=== PATIENT | female | born 1935 | race Caucasian/White ===

== ENCOUNTER 2019-03-19 01:31 | Inpatient (IN) ==
[2019-03-19] MEDS ORDERED: ONDANSETRON 4 MG/2 ML VIAL IVP ONE (01:39)
[2019-03-19] MEDS ORDERED: MORPHINE SULFATE 4 MG/1 ML IVP ONE (01:39)
[2019-03-19] MEDS ORDERED: Sodium Chloride 0.9% 1,000 ML PRIMARY IV ONE (01:39)
[2019-03-19 01:55] LABS: BASOPHILS # (AUTO) 0.07 10*3/UL; BASOPHILS % (AUTO) 0.8 % (0-1); EOSINOPHILS # (AUTO) 0.25 10*3/UL; EOSINOPHILS % (AUTO) 2.9 % (0-8); Hemoglobin [HGB] 13.6 g/dL (12.0-16.0); LYMPHOCYTES # (AUTO) 2.71 10*3/uL; MEAN CORPUSCULAR HGB CONC 31.6 g/dL (33-37); MEAN CORPUSCULAR VOLUME 95.8 FL (81-99); MEAN PLATELET VOLUME 11.6 FL (7.4-12.2); MONOCYTES # (AUTO) 0.63 10*3/UL (0.3-0.8); MONOCYTES % (AUTO) 7.4 % (5-15); NEUTROPHILS # (AUTO) 4.86 10*3/UL; NEUTROPHILS % (AUTO) 56.8 % (50-80); RED BLOOD COUNT 4.49 10^6/uL (4.20-5.40)
[2019-03-19 01:57] LABS: PLATELET MORPHOLOGY COMMENT NORMAL MORPHOLOGY (NORM); RBC MORPHOLOGY COMMENT NORMAL MORPHOLOGY (NORM); WBC MORPHOLOGY COMMENT NORMAL MORPHOLOGY (NORM)
[2019-03-19 02:03] LABS: BUN/CREATININE RATIO 33.33 (6-20); SERUM ALBUMIN 4.3 g/dL (3.5-4.8)
[2019-03-19] MEDS ORDERED: LORazepam 2 MG/1 ML VIAL IVP ONE ×2 (02:18→07:55)
[2019-03-19] MEDS ORDERED: LIDOCAINE HCL 2 % 10 ML JELLY URO-JECT TOPICAL PRN ×2 (02:40→03:06)
[2019-03-19] MEDS ORDERED: LIDOCAINE W/ SODIUM BICARB 0.5 ML SYR SUBD PRN ×2 (03:06→12:35)
[2019-03-19] MEDS ORDERED: DOCUSATE 100 MG CAPSULE PO PRN (03:06)
[2019-03-19] MEDS ORDERED: ONDANSETRON 4 MG/2 ML VIAL IVP PRN (03:06)
[2019-03-19] MEDS ORDERED: CALCIUM CARBONATE 500 MG (TUMS) CHEWABLE TABLET PO PRN (03:06)
[2019-03-19] MEDS ORDERED: ACETAMINOPHEN 325 MG TABLET PO PRN (03:06)
[2019-03-19] MEDS ORDERED: HYDROcodone-APAP 5 MG -325 MG TABLET PO PRN (03:06)
[2019-03-19] MEDS: Lactated Ringers 1,000 ML PRIMARY IV SCH ×3 (03:18→19:56)
[2019-03-19] MEDS: MORPHINE SULFATE 2 MG/1 ML IVP PRN ×2 (03:18→07:28)
[2019-03-19] MEDS: ClonazePAM Tab 1 MG TABLET PO PRN (04:24)
[2019-03-19 07:51] LABS: BILIRUBIN,URINE NEGATIVE (NEG); CLARITY,URINE Slightly Cloudy (CLEAR); COLOR,URINE YELLOW (Y); GLUCOSE, URINE (UA) NEGATIVE (NEG); OCCULT BLOOD,URINE MODERATE (NEG); PROTEIN,URINE TRACE mg/dl (NEG); UROBILINOGEN,URINE 0.2 EU/dL (0.2)
[2019-03-19] MEDS ORDERED: TRANEXAMIC ACID 1,000 MG / 10 ML VIAL ONE ×2 (07:55→10:38)
[2019-03-19] MEDS ORDERED: Sodium Chloride 0.9% 500 ML ONE (08:00)
[2019-03-19 08:02] LABS: BACTERIA,URINE MODERATE; SQUAMOUS EPITHELIAL CELL,UR RARE; URINE SAMPLE TYPE CATH SPECIMEN; WBC,URINE 80-100
[2019-03-19] MEDS ORDERED: Magnesium Sulfate 2gm (Premix) 2 GM/50 ML BAG IV ONE (08:30)
[2019-03-19] MEDS: cefTRIAXone Inj 2 GM in Sodium Chloride 0.9% 100 ML IV SCH ×2 (08:54→09:45)
[2019-03-19] MEDS ORDERED: metFORMIN 500 MG TABLET PO SCH (09:00)
[2019-03-19] MEDS ORDERED: HYDROCHLOROTHIAZIDE 25 MG TABLET PO SCH (09:00)
[2019-03-19] MEDS ORDERED: LOSARTAN 50 MG TABLET PO SCH (09:00)
[2019-03-19] MEDS ORDERED: fentaNYL Inj 250 MCG/5 ML VIAL ONE (09:44)
[2019-03-19] MEDS ORDERED: LIDOCAINE MPF 2% - 5 ML (20 MG/1 ML) ONE (09:44)
[2019-03-19] MEDS ORDERED: PROPOFOL 10 MG/1 ML (200 MG/20 ML) VIAL IV ONE (09:45)
[2019-03-19] MEDS ORDERED: ceFAZolin Inj 2gm (Premix) 2 GM/50 ML BAG IV ONE ×2 (10:10→10:56)
[2019-03-19] MEDS ORDERED: Lactated Ringers 1,000 ML PRIMARY IV ONE (10:42)
[2019-03-19] MEDS ORDERED: SUGAMMADEX SODIUM 200 MG/2 ML VIAL IV ONE (11:53)
[2019-03-19] MEDS ORDERED: NEOMYCIN/BACITRACIN/POLYMYXIN 0.9 GM OINT PACKET TOPICAL ONE (12:13)
[2019-03-19] MEDS ORDERED: HYDRALAZINE 20 MG/1 ML ONE (12:27)
[2019-03-19] MEDS ORDERED: HYDRALAZINE 20 MG/1 ML IVP ONE (12:32)
[2019-03-19] MEDS ORDERED: HYDROmorphone 2 MG/1 ML IVP PRN (12:35)
[2019-03-19] MEDS ORDERED: fentaNYL Inj 100 MCG/2 ML VIAL IVP PRN (12:35)
[2019-03-19] MEDS ORDERED: HYDRALAZINE 20 MG/1 ML IVP PRN (13:55)
[2019-03-19] MEDS: CITALOPRAM 20 MG TABLET PO SCH (14:59)
[2019-03-19] MEDS: AmLODIPine Tab 2.5 MG TABLET PO SCH (15:00)
[2019-03-19] MEDS: HYDROcodone-APAP 5 MG -325 MG TABLET PO PRN (21:09)
[2019-03-19] MEDS: Mirtazapine Tab 15 MG TAB PO SCH (21:11)
[2019-03-20] MEDS: ClonazePAM Tab 1 MG TABLET PO PRN ×2 (01:57→18:45)
[2019-03-20] MEDS: HYDROcodone-APAP 5 MG -325 MG TABLET PO PRN ×3 (03:33→19:00)
[2019-03-20 05:00] LABS: Hematocrit [HCT] 36.5 % (37.0-47.0); Hemoglobin [HGB] 11.3 g/dL (12.0-16.0); MEAN CORPUSCULAR VOLUME 96.6 FL (81-99); MEAN PLATELET VOLUME 10.8 FL (7.4-12.2); RED BLOOD COUNT 3.78 10^6/uL (4.20-5.40)
[2019-03-20] MEDS: Lactated Ringers 1,000 ML PRIMARY IV SCH ×2 (05:13→12:57)
[2019-03-20] MEDS: CITALOPRAM 20 MG TABLET PO SCH (08:42)
[2019-03-20] MEDS: AmLODIPine Tab 2.5 MG TABLET PO SCH (09:02)
[2019-03-20] MEDS: cefTRIAXone Inj 2 GM in Sodium Chloride 0.9% 100 ML IV SCH (09:02)
[2019-03-20] MEDS ORDERED: CHOLECALCIFEROL 1000 IU TABLET PO ONE (09:32)
[2019-03-20] MEDS ORDERED: HALOPERIDOL LACTATE 5 MG/1 ML AMPULE IM ONE (10:59)
[2019-03-20] MEDS ORDERED: HALOPERIDOL LACTATE 5 MG/1 ML AMPULE IM PRN (10:59)
[2019-03-20] MEDS ORDERED: FUROSEMIDE 10 MG/1 ML - 4 ML IVP ONE (12:15)
[2019-03-20] MEDS ORDERED: ENOXAPARIN SODIUM 40 MG/0.4 ML SYRINGE SUBCUT ONE (12:15)
[2019-03-20] MEDS: Acetaminophen 1000mg Inj 1,000 MG/100 ML VIAL IV SCH ×2 (12:53→21:26)
[2019-03-20] MEDS: Mirtazapine Tab 15 MG TAB PO SCH (21:26)
[2019-03-21] MEDS: HYDROcodone-APAP 5 MG -325 MG TABLET PO PRN ×2 (01:13→19:31)
[2019-03-21] MEDS: Acetaminophen 1000mg Inj 1,000 MG/100 ML VIAL IV SCH ×2 (04:21→11:16)
[2019-03-21 04:50] LABS: BASOPHILS # (AUTO) 0.02 10*3/UL; BASOPHILS % (AUTO) 0.2 % (0-1); EOSINOPHILS # (AUTO) 0.03 10*3/UL; EOSINOPHILS % (AUTO) 0.3 % (0-8); Hematocrit [HCT] 37.9 % (37.0-47.0); Hemoglobin [HGB] 11.6 g/dL (12.0-16.0); LYMPHOCYTES # (AUTO) 1.21 10*3/uL; MEAN CORPUSCULAR HGB CONC 30.6 g/dL (33-37); MEAN CORPUSCULAR VOLUME 97.4 FL (81-99); MONOCYTES # (AUTO) 1.04 10*3/UL (0.3-0.8); MONOCYTES % (AUTO) 8.8 % (5-15); NEUTROPHILS % (AUTO) 80.2 % (50-80); RED BLOOD COUNT 3.89 10^6/uL (4.20-5.40)
[2019-03-21 04:52] LABS: PLATELET MORPHOLOGY COMMENT NORMAL MORPHOLOGY (NORM); RBC MORPHOLOGY COMMENT NORMAL MORPHOLOGY (NORM); WBC MORPHOLOGY COMMENT NORMAL MORPHOLOGY (NORM)
[2019-03-21 04:56] LABS: BUN/CREATININE RATIO 27.5 (6-20)
[2019-03-21] MEDS: cefTRIAXone Inj 2 GM in Sodium Chloride 0.9% 100 ML IV SCH (08:13)
[2019-03-21] MEDS: ASPIRIN 81 MG (BABY) CHEWABLE TABLET PO SCH (08:49)
[2019-03-21] MEDS: AmLODIPine Tab 2.5 MG TABLET PO SCH (08:50)
[2019-03-21] MEDS: CHOLECALCIFEROL 1000 IU TABLET PO SCH (08:50)
[2019-03-21] MEDS: CITALOPRAM 20 MG TABLET PO SCH (08:50)
[2019-03-21] MEDS ORDERED: ENOXAPARIN SODIUM 40 MG/0.4 ML SYRINGE SUBCUT SCH (09:00)
[2019-03-21] MEDS ORDERED: ENOXAPARIN SODIUM 30 MG/0.3 ML SYRINGE SUBCUT ONE (12:00)
[2019-03-21] MEDS ORDERED: METOPROLOL SUCCINATE 25 MG SR 24H TABLET PO ONE (19:47)
[2019-03-21] MEDS ORDERED: Acetaminophen 1000mg Inj 1,000 MG/100 ML VIAL IV PRN (19:47)
[2019-03-21] MEDS: CEPHALEXIN 500 MG CAPSULE PO SCH (21:14)
[2019-03-21] MEDS: Mirtazapine Tab 15 MG TAB PO SCH (21:14)
[2019-03-22] MEDS: HYDROcodone-APAP 5 MG -325 MG TABLET PO PRN ×2 (03:17→19:51)
[2019-03-22 06:18] LABS: BASOPHILS # (AUTO) 0.03 10*3/UL; BASOPHILS % (AUTO) 0.3 % (0-1); EOSINOPHILS # (AUTO) 0.18 10*3/UL; EOSINOPHILS % (AUTO) 1.9 % (0-8); Hematocrit [HCT] 36.4 % (37.0-47.0); MEAN CORPUSCULAR HGB CONC 30.2 g/dL (33-37); MEAN CORPUSCULAR VOLUME 97.3 FL (81-99); MEAN PLATELET VOLUME 11.2 FL (7.4-12.2); MONOCYTES # (AUTO) 0.77 10*3/UL (0.3-0.8); NEUTROPHILS # (AUTO) 7.38 10*3/UL; NEUTROPHILS % (AUTO) 77.1 % (50-80); RED BLOOD COUNT 3.74 10^6/uL (4.20-5.40)
[2019-03-22 06:19] LABS: BUN/CREATININE RATIO 35.71 (6-20)
[2019-03-22 06:23] LABS: PLATELET MORPHOLOGY COMMENT NORMAL MORPHOLOGY (NORM); RBC MORPHOLOGY COMMENT NORMAL MORPHOLOGY (NORM); WBC MORPHOLOGY COMMENT NORMAL MORPHOLOGY (NORM)
[2019-03-22] MEDS: POTASSIUM CHLORIDE 20 MEQ TAB PO SCH (09:21)
[2019-03-22] MEDS: CEPHALEXIN 500 MG CAPSULE PO SCH ×2 (09:21→19:54)
[2019-03-22] MEDS: ASPIRIN 81 MG (BABY) CHEWABLE TABLET PO SCH (09:21)
[2019-03-22] MEDS: METOPROLOL SUCCINATE 25 MG SR 24H TABLET PO SCH (09:21)
[2019-03-22] MEDS: CHOLECALCIFEROL 1000 IU TABLET PO SCH (09:21)
[2019-03-22] MEDS: CITALOPRAM 20 MG TABLET PO SCH (09:21)
[2019-03-22] MEDS: ENOXAPARIN SODIUM 60 MG/0.6 ML SYRINGE SUBCUT SCH (13:40)
[2019-03-22] MEDS: Mirtazapine Tab 15 MG TAB PO SCH (19:54)
[2019-03-23] MEDS: CEPHALEXIN 500 MG CAPSULE PO SCH ×3 (05:08→20:50)
[2019-03-23] MEDS: Mirtazapine Tab 15 MG TAB PO SCH ×2 (05:10→20:50)
[2019-03-23] MEDS: CHOLECALCIFEROL 1000 IU TABLET PO SCH (09:25)
[2019-03-23] MEDS: METOPROLOL SUCCINATE 25 MG SR 24H TABLET PO SCH (09:26)
[2019-03-23] MEDS: CITALOPRAM 20 MG TABLET PO SCH (09:26)
[2019-03-23] MEDS: POTASSIUM CHLORIDE 20 MEQ TAB PO SCH (09:26)
[2019-03-23] MEDS: ASPIRIN 81 MG (BABY) CHEWABLE TABLET PO SCH (09:26)
[2019-03-23] MEDS: ENOXAPARIN SODIUM 60 MG/0.6 ML SYRINGE SUBCUT SCH (12:52)
[2019-03-23] MEDS ORDERED: LIDOCAINE HCL 2 % 10 ML JELLY URO-JECT TOPICAL PRN (18:28)
[2019-03-23] MEDS ORDERED: LABETALOL 20 MG/4 ML (5 MG/1 ML) SYRINGE IVP PRN (19:13)
[2019-03-23] MEDS: HYDROcodone-APAP 5 MG -325 MG TABLET PO PRN (20:51)
[2019-03-24] MEDS: Lactated Ringers 1,000 ML PRIMARY IV SCH ×3 (00:42→13:06)
[2019-03-24 05:22] LABS: BASOPHILS # (AUTO) 0.04 10*3/UL; BASOPHILS % (AUTO) 0.5 % (0-1); EOSINOPHILS # (AUTO) 0.26 10*3/UL; EOSINOPHILS % (AUTO) 3.3 % (0-8); Hematocrit [HCT] 36.6 % (37.0-47.0); Hemoglobin [HGB] 11.7 g/dL (12.0-16.0); LYMPHOCYTES # (AUTO) 1.55 10*3/uL; MEAN CORPUSCULAR VOLUME 95.8 FL (81-99); MEAN PLATELET VOLUME 10.8 FL (7.4-12.2); NEUTROPHILS % (AUTO) 66.9 % (50-80); RED BLOOD COUNT 3.82 10^6/uL (4.20-5.40)
[2019-03-24 05:25] LABS: PLATELET MORPHOLOGY COMMENT NORMAL MORPHOLOGY (NORM); RBC MORPHOLOGY COMMENT NORMAL MORPHOLOGY (NORM); WBC MORPHOLOGY COMMENT NORMAL MORPHOLOGY (NORM)
[2019-03-24] MEDS ORDERED: cefTRIAXone Inj 2 GM in Sodium Chloride 0.9% 100 ML IV SCH (07:00)
[2019-03-24] MEDS: METOPROLOL SUCCINATE 25 MG SR 24H TABLET PO SCH (08:08)
[2019-03-24] MEDS ORDERED: fentaNYL Inj 100 MCG/2 ML VIAL ONE (08:22)
[2019-03-24] MEDS ORDERED: MIDAZOLAM HCL 2 MG/2 ML VIAL ONE (08:22)
[2019-03-24] MEDS ORDERED: PHENYLEPHRINE 10,000 MCG/1 ML VIAL ONE (08:23)
[2019-03-24] MEDS ORDERED: Sodium Chloride 0.9% 0 ML ONE (08:24)
[2019-03-24] MEDS ORDERED: Sodium Chloride 0.9% 250 ML ONE (09:08)
[2019-03-24] MEDS ORDERED: LIDOCAINE W/ SODIUM BICARB 0.5 ML SYR ONE (09:14)
[2019-03-24] MEDS ORDERED: GLYCOPYRROLATE 0.2 MG/1 ML VIAL ONE (09:46)
[2019-03-24] MEDS ORDERED: ceFAZolin Inj 2gm (Premix) 2 GM/50 ML BAG IV ONE ×2 (09:48→10:39)
[2019-03-24] MEDS ORDERED: BUPivacaine Inj 0.5% PF (5mg/ml) 10ml vial ONE (10:16)
[2019-03-24] MEDS ORDERED: BUPivacaine Liposome/PF (Exparel) Inj 20ml vial INFIL ONE (10:16)
[2019-03-24] MEDS ORDERED: PROPOFOL 10 MG/1 ML (200 MG/20 ML) VIAL IV ONE (10:49)
[2019-03-24] MEDS ORDERED: ONDANSETRON 4 MG/2 ML VIAL IVP PRN (12:19)
[2019-03-24] MEDS: CITALOPRAM 20 MG TABLET PO SCH (13:05)
[2019-03-24] MEDS: ASPIRIN 81 MG (BABY) CHEWABLE TABLET PO SCH (13:05)
[2019-03-24] MEDS: CHOLECALCIFEROL 1000 IU TABLET PO SCH (13:06)
[2019-03-24] MEDS: POTASSIUM CHLORIDE 20 MEQ TAB PO SCH (13:06)
[2019-03-24] MEDS: HYDROcodone-APAP 5 MG -325 MG TABLET PO PRN ×2 (15:06→20:57)
[2019-03-24] MEDS: ceFAZolin Inj 2gm (Premix) 2 GM/50 ML BAG IV SCH (18:43)
[2019-03-24] MEDS: DOCUSATE 100 MG CAPSULE PO SCH (20:45)
[2019-03-24] MEDS: Mirtazapine Tab 15 MG TAB PO SCH (20:47)
[2019-03-25] MEDS: LABETALOL 20 MG/4 ML (5 MG/1 ML) SYRINGE IVP PRN (01:31)
[2019-03-25] MEDS ORDERED: Sodium Chloride 0.9% 1,000 ML PRIMARY IV ONE (01:47)
[2019-03-25] MEDS ORDERED: Sodium Chloride 0.9% 750 ML IV ONE (01:54)
[2019-03-25] MEDS: ceFAZolin Inj 2gm (Premix) 2 GM/50 ML BAG IV SCH (02:01)
[2019-03-25 04:46] LABS: BASOPHILS # (AUTO) 0.03 10*3/UL; BASOPHILS % (AUTO) 0.3 % (0-1); EOSINOPHILS % (AUTO) 4.4 % (0-8); Hematocrit [HCT] 35.9 % (37.0-47.0); Hemoglobin [HGB] 11.2 g/dL (12.0-16.0); LYMPHOCYTES # (AUTO) 1.31 10*3/uL; MEAN CORPUSCULAR HGB CONC 31.2 g/dL (33-37); MEAN CORPUSCULAR VOLUME 96.5 FL (81-99); MEAN PLATELET VOLUME 10.5 FL (7.4-12.2); MONOCYTES # (AUTO) 0.95 10*3/UL (0.3-0.8); MONOCYTES % (AUTO) 10.5 % (5-15); RED BLOOD COUNT 3.72 10^6/uL (4.20-5.40)
[2019-03-25 04:48] LABS: PLATELET MORPHOLOGY COMMENT NORMAL MORPHOLOGY (NORM); RBC MORPHOLOGY COMMENT NORMAL MORPHOLOGY (NORM); WBC MORPHOLOGY COMMENT NORMAL MORPHOLOGY (NORM)
[2019-03-25] MEDS ORDERED: cefTRIAXone Inj 2 GM in Sodium Chloride 0.9% 100 ML IV SCH (07:00)
[2019-03-25] MEDS ORDERED: ASPIRIN 325 MG TABLET PO SCH ×2 (09:00)
[2019-03-25] MEDS: CITALOPRAM 20 MG TABLET PO SCH (09:04)
[2019-03-25] MEDS: METOPROLOL SUCCINATE 25 MG SR 24H TABLET PO SCH (09:04)
[2019-03-25] MEDS: CEPHALEXIN 500 MG CAPSULE PO SCH ×2 (09:04→20:25)
[2019-03-25] MEDS: POTASSIUM CHLORIDE 20 MEQ TAB PO SCH (09:05)
[2019-03-25] MEDS: DOCUSATE 100 MG CAPSULE PO SCH ×2 (09:05→20:25)
[2019-03-25] MEDS: HYDROcodone-APAP 5 MG -325 MG TABLET PO PRN ×3 (09:06→20:23)
[2019-03-25] MEDS ORDERED: ASPIRIN 81 MG (BABY) CHEWABLE TABLET PO SCH (09:15)
[2019-03-25] MEDS: ENOXAPARIN SODIUM 40 MG/0.4 ML SYRINGE SUBCUT SCH (16:49)
[2019-03-25] MEDS: Mirtazapine Tab 15 MG TAB PO SCH (20:24)
[2019-03-26 05:33] LABS: BASOPHILS # (AUTO) 0.05 10*3/UL; BASOPHILS % (AUTO) 0.4 % (0-1); EOSINOPHILS # (AUTO) 0.31 10*3/UL; EOSINOPHILS % (AUTO) 2.8 % (0-8); Hematocrit [HCT] 36.5 % (37.0-47.0); Hemoglobin [HGB] 11.2 g/dL (12.0-16.0); LYMPHOCYTES # (AUTO) 2.03 10*3/uL; MEAN CORPUSCULAR HGB CONC 30.7 g/dL (33-37); MEAN CORPUSCULAR VOLUME 96.1 FL (81-99); MEAN PLATELET VOLUME 10.4 FL (7.4-12.2); MONOCYTES # (AUTO) 1.11 10*3/UL (0.3-0.8); MONOCYTES % (AUTO) 9.8 % (5-15); NEUTROPHILS # (AUTO) 7.68 10*3/UL; NEUTROPHILS % (AUTO) 68.2 % (50-80)
[2019-03-26 05:36] LABS: PLATELET MORPHOLOGY COMMENT NORMAL MORPHOLOGY (NORM); RBC MORPHOLOGY COMMENT NORMAL MORPHOLOGY (NORM); WBC MORPHOLOGY COMMENT NORMAL MORPHOLOGY (NORM)
[2019-03-26 05:40] LABS: BUN/CREATININE RATIO 28.33 (6-20)
[2019-03-26] MEDS ORDERED: BISACODYL 5 MG TABLET PO PRN (09:00)
[2019-03-26] MEDS: POTASSIUM CHLORIDE 20 MEQ TAB PO SCH (09:25)
[2019-03-26] MEDS: METOPROLOL SUCCINATE 25 MG SR 24H TABLET PO SCH (09:25)
[2019-03-26] MEDS: CITALOPRAM 20 MG TABLET PO SCH (09:25)
[2019-03-26] MEDS: ASPIRIN 81 MG (BABY) CHEWABLE TABLET PO SCH (09:25)
[2019-03-26] MEDS: ENOXAPARIN SODIUM 40 MG/0.4 ML SYRINGE SUBCUT SCH (09:26)
[2019-03-26] MEDS: HYDROcodone-APAP 5 MG -325 MG TABLET PO PRN ×3 (09:26→18:42)
[2019-03-26] MEDS: DOCUSATE 100 MG CAPSULE PO SCH ×2 (09:27→20:10)
[2019-03-26] MEDS: ClonazePAM Tab 1 MG TABLET PO PRN (18:25)
[2019-03-26] MEDS: Mirtazapine Tab 15 MG TAB PO SCH (20:10)
[2019-03-27 05:00] LABS: BASOPHILS # (AUTO) 0.06 10*3/UL; BASOPHILS % (AUTO) 0.5 % (0-1); EOSINOPHILS # (AUTO) 0.33 10*3/UL; EOSINOPHILS % (AUTO) 2.9 % (0-8); Hematocrit [HCT] 35.2 % (37.0-47.0); Hemoglobin [HGB] 10.9 g/dL (12.0-16.0); LYMPHOCYTES # (AUTO) 1.96 10*3/uL; MEAN CORPUSCULAR VOLUME 95.9 FL (81-99); MEAN PLATELET VOLUME 10.2 FL (7.4-12.2); MONOCYTES # (AUTO) 1.12 10*3/UL (0.3-0.8); MONOCYTES % (AUTO) 9.9 % (5-15); NEUTROPHILS # (AUTO) 7.71 10*3/UL; NEUTROPHILS % (AUTO) 68.3 % (50-80); RED BLOOD COUNT 3.67 10^6/uL (4.20-5.40)
[2019-03-27 05:15] LABS: PLATELET MORPHOLOGY COMMENT NORMAL MORPHOLOGY (NORM); RBC MORPHOLOGY COMMENT NORMAL MORPHOLOGY (NORM); WBC MORPHOLOGY COMMENT NORMAL MORPHOLOGY (NORM)
[2019-03-27] MEDS: HYDROcodone-APAP 5 MG -325 MG TABLET PO PRN ×4 (05:27→20:14)
[2019-03-27 05:28] LABS: BUN/CREATININE RATIO 28.33 (6-20)
[2019-03-27] MEDS: ENOXAPARIN SODIUM 40 MG/0.4 ML SYRINGE SUBCUT SCH (09:34)
[2019-03-27] MEDS: CITALOPRAM 20 MG TABLET PO SCH (09:35)
[2019-03-27] MEDS: ASPIRIN 81 MG (BABY) CHEWABLE TABLET PO SCH (09:35)
[2019-03-27] MEDS: DOCUSATE 100 MG CAPSULE PO SCH ×2 (09:35→20:14)
[2019-03-27] MEDS: METOPROLOL SUCCINATE 25 MG SR 24H TABLET PO SCH (09:36)
[2019-03-27] MEDS: ClonazePAM Tab 1 MG TABLET PO PRN (18:17)
[2019-03-27] MEDS: Mirtazapine Tab 15 MG TAB PO SCH (20:14)
[2019-03-28] MEDS: HYDROcodone-APAP 5 MG -325 MG TABLET PO PRN ×5 (01:36→18:36)
[2019-03-28] MEDS: LABETALOL 20 MG/4 ML (5 MG/1 ML) SYRINGE IVP PRN (01:50)
[2019-03-28] MEDS: CITALOPRAM 20 MG TABLET PO SCH (08:43)
[2019-03-28] MEDS: DOCUSATE 100 MG CAPSULE PO SCH ×2 (08:44→20:06)
[2019-03-28] MEDS: ASPIRIN 81 MG (BABY) CHEWABLE TABLET PO SCH (08:45)
[2019-03-28] MEDS: METOPROLOL SUCCINATE 25 MG SR 24H TABLET PO SCH (08:45)
[2019-03-28] MEDS: ENOXAPARIN SODIUM 40 MG/0.4 ML SYRINGE SUBCUT SCH (08:45)
[2019-03-28] MEDS ORDERED: CEPHALEXIN 500 MG CAPSULE PO SCH (12:00)
[2019-03-28] MEDS: ClonazePAM Tab 1 MG TABLET PO PRN (19:40)
[2019-03-28] MEDS: Mirtazapine Tab 15 MG TAB PO SCH (20:06)
[2019-03-29] MEDS: HYDROcodone-APAP 5 MG -325 MG TABLET PO PRN ×5 (03:51→20:31)
[2019-03-29] MEDS: ENOXAPARIN SODIUM 40 MG/0.4 ML SYRINGE SUBCUT SCH (08:17)
[2019-03-29] MEDS: ASPIRIN 81 MG (BABY) CHEWABLE TABLET PO SCH (08:18)
[2019-03-29] MEDS: CITALOPRAM 20 MG TABLET PO SCH (08:18)
[2019-03-29] MEDS: DOCUSATE 100 MG CAPSULE PO SCH ×2 (08:18→20:30)
[2019-03-29] MEDS: METOPROLOL SUCCINATE 25 MG SR 24H TABLET PO SCH (08:19)
[2019-03-29] MEDS: ClonazePAM Tab 1 MG TABLET PO PRN (20:30)
[2019-03-29] MEDS: Mirtazapine Tab 15 MG TAB PO SCH (20:30)
[2019-03-30] MEDS: HYDROcodone-APAP 5 MG -325 MG TABLET PO PRN ×3 (01:41→20:51)
[2019-03-30] MEDS: LOSARTAN 25 MG TABLET PO SCH (09:10)
[2019-03-30] MEDS: CITALOPRAM 20 MG TABLET PO SCH (09:10)
[2019-03-30] MEDS: DOCUSATE 100 MG CAPSULE PO SCH ×3 (09:10→20:50)
[2019-03-30] MEDS: ASPIRIN 81 MG (BABY) CHEWABLE TABLET PO SCH (09:10)
[2019-03-30] MEDS: ENOXAPARIN SODIUM 40 MG/0.4 ML SYRINGE SUBCUT SCH ×2 (09:11→09:46)
[2019-03-30] MEDS: METOPROLOL SUCCINATE 25 MG SR 24H TABLET PO SCH ×2 (09:32→09:46)
[2019-03-30] MEDS: Metoprolol TARTRATE Tab 25 MG TAB PO SCH (11:52)
[2019-03-30] MEDS: metFORMIN 500 MG TABLET PO SCH (16:27)
[2019-03-30] MEDS: ClonazePAM Tab 1 MG TABLET PO PRN (20:50)
[2019-03-30] MEDS: Mirtazapine Tab 15 MG TAB PO SCH (20:51)
[2019-03-31] MEDS: HYDROcodone-APAP 5 MG -325 MG TABLET PO PRN ×3 (04:32→20:03)
[2019-03-31] MEDS: DOCUSATE 100 MG CAPSULE PO SCH ×2 (08:00→20:02)
[2019-03-31] MEDS: ASPIRIN 81 MG (BABY) CHEWABLE TABLET PO SCH (08:25)
[2019-03-31] MEDS: metFORMIN 500 MG TABLET PO SCH ×2 (08:26→17:02)
[2019-03-31] MEDS: CITALOPRAM 20 MG TABLET PO SCH (08:26)
[2019-03-31] MEDS: LOSARTAN 25 MG TABLET PO SCH (08:27)
[2019-03-31] MEDS: ENOXAPARIN SODIUM 40 MG/0.4 ML SYRINGE SUBCUT SCH (08:28)
[2019-03-31 09:12] LABS: RED BLOOD COUNT 3.77 10^6/uL (4.20-5.40)
[2019-03-31 09:13] LABS: BASOPHILS # (AUTO) 0.09 10*3/UL; BASOPHILS % (AUTO) 0.9 % (0-1); EOSINOPHILS % (AUTO) 3.1 % (0-8); Hematocrit [HCT] 35.7 % (37.0-47.0); Hemoglobin [HGB] 11.2 g/dL (12.0-16.0); LYMPHOCYTES # (AUTO) 1.75 10*3/uL; MEAN CORPUSCULAR HGB CONC 31.4 g/dL (33-37); MEAN CORPUSCULAR VOLUME 94.7 FL (81-99); MONOCYTES # (AUTO) 0.61 10*3/UL (0.3-0.8); MONOCYTES % (AUTO) 6.3 % (5-15); NEUTROPHILS # (AUTO) 6.81 10*3/UL; NEUTROPHILS % (AUTO) 70.5 % (50-80); PLATELET MORPHOLOGY COMMENT NORMAL MORPHOLOGY (NORM); WBC MORPHOLOGY COMMENT NORMAL MORPHOLOGY (NORM)
[2019-03-31 09:14] LABS: RBC MORPHOLOGY COMMENT NORMAL MORPHOLOGY (NORM)
[2019-03-31 09:19] LABS: BLOOD UREA NITROGEN 14 mg/dL (7-22)
[2019-03-31] MEDS: Metoprolol TARTRATE Tab 25 MG TAB PO SCH (10:17)
[2019-03-31] MEDS: Mirtazapine Tab 15 MG TAB PO SCH (20:02)
[2019-03-31] MEDS: ClonazePAM Tab 1 MG TABLET PO PRN (20:03)
[2019-04-01] MEDS: HYDROcodone-APAP 5 MG -325 MG TABLET PO PRN ×4 (03:47→22:43)
[2019-04-01] MEDS: metFORMIN 500 MG TABLET PO SCH ×2 (07:12→16:42)
[2019-04-01] MEDS: LOSARTAN 25 MG TABLET PO SCH (07:12)
[2019-04-01] MEDS: CITALOPRAM 20 MG TABLET PO SCH (08:13)
[2019-04-01] MEDS: ENOXAPARIN SODIUM 40 MG/0.4 ML SYRINGE SUBCUT SCH (08:13)
[2019-04-01] MEDS: Metoprolol TARTRATE Tab 25 MG TAB PO SCH (08:13)
[2019-04-01] MEDS: ASPIRIN 81 MG (BABY) CHEWABLE TABLET PO SCH (08:14)
[2019-04-01] MEDS: DOCUSATE 100 MG CAPSULE PO SCH ×2 (08:14→21:36)
[2019-04-01] MEDS: Mirtazapine Tab 15 MG TAB PO SCH (21:35)
[2019-04-01] MEDS: ClonazePAM Tab 1 MG TABLET PO PRN (22:45)
[2019-04-02] MEDS: metFORMIN 500 MG TABLET PO SCH (06:51)
[2019-04-02] MEDS: LOSARTAN 25 MG TABLET PO SCH (06:51)
[2019-04-02 06:59] VITALS: BP 171/68; RESP 18; TEMP 98.3; O2SAT 93
[2019-04-02] MEDS: ENOXAPARIN SODIUM 40 MG/0.4 ML SYRINGE SUBCUT SCH (08:00)
[2019-04-02] MEDS: ASPIRIN 81 MG (BABY) CHEWABLE TABLET PO SCH (08:00)
[2019-04-02] MEDS: CITALOPRAM 20 MG TABLET PO SCH (08:01)
[2019-04-02] MEDS: DOCUSATE 100 MG CAPSULE PO SCH (08:01)
[2019-04-02] MEDS: Metoprolol TARTRATE Tab 25 MG TAB PO SCH (08:01)
[2019-04-02] MEDS: HYDROcodone-APAP 5 MG -325 MG TABLET PO PRN ×2 (08:01→12:03)
== END 2019-04-02 14:00 | DRG 999 ==
LOC: ER 01:31 → MED/SURG 02:37 → OPS 09:35 → MED/SURG 12:59 → OPS 03-24 09:45 → MED/SURG 03-24 11:47
PROVIDERS: ADMIT Internal Medicine; ATTEND Internal Medicine